=== PATIENT | male | born 1995 | race African-American/Black ===

== ENCOUNTER 2017-09-02 15:05 | Emergency (ER) | payer OTHER ==
[~2017-09-02] VITALS: Ht 180.3 cm; Wt 81.7 kg
[~2017-09-02 15:05] MED LIST: BIPOLAR MED PO; NAPROSYN500 MG PO; NORCO 5-325 TA1 EACH PO; PREDNISONE 20 M20 MG PO; REMICADE 1100 MG/VIA IV; SLEEPING MED PO
[2017-09-02 15:21] LABS: URINE BILIRUBIN NEGATIVE (Negative); URINE BLOOD 1+ (Negative); URINE COLOR YELLOW; URINE GLUCOSE-RANDOM* NEGATIVE (Negative); URINE KETONES TRACE (Negative); URINE NITRITE NEGATIVE (Negative); URINE PROTEIN (DIPSTICK) TRACE (Negative); URINE SPECIFIC GRAVITY 1.025 (1.003-1.035)
[2017-09-02 15:29] LABS: CRYSTALS None Seen /LPF (None Seen); URINE RBC 3-10 Few /HPF (0-2); URINE WBC >25 Many /HPF (0-5)
[2017-09-02 15:34] LABS: BACTERIA 1-9 Few /HPF (None Seen); SQUAMOUS None Seen /LPF (0-3)
[2017-09-02 15:40] LABS: CASTS None Seen /LPF (None Seen)
[2017-09-02] MEDS ORDERED: KEFLEX500 MG PO (15:42)
== END 2017-09-02 15:45 | disposition home or self-care (01) ==
LOC: ER 15:05
PROVIDERS: Nurse Practitioner Family
DX: N34.2 Other urethritis (principal); F31.9 Bipolar disorder, unspecified; F90.9 Attention-deficit hyperactivity disorder, unspecified type; Z87.19 Personal history of other diseases of the digestive system